=== PATIENT | female | born 1940 | race Caucasian/White ===

== ENCOUNTER 2017-01-26 10:02 | Inpatient (IN) | payer MEDICARE, OTHER ==
[~2017-01-26] VITALS: Ht 160 cm; Wt 62.3 kg
[~2017-01-26 10:02] MED LIST: AMIT50TA PO; AMOX1TAB61 PO; ASPI325T8 PO; BUDE10.2 IH; CARV25TA2 PO; CEPH-264 PO; CLOP75TA PO; DIAZ5TAB4 PO; HYDR-2678 PO; HYDROCODONE; PARO10TA57 PO; SIMV20TA3 PO; TIOT18CA IH; VENTOLIN HFA18 GM IH; VENTOLIN PRN; [UNRECOGNIZED DRUG - OTHER]
[2017-01-26 10:37] LABS: BASO # 0.1 x10^3/uL (0.0-0.2); BASO % 1 % (0-3); EOS % 4 % (0-3); HEMATOCRIT 46.4 % (36.0-47.0); HEMOGLOBIN 15.3 g/dL (12.0-15.5); LYMPH # 1.6 x10^3/uL (1.0-4.8); LYMPH % 23 % (24-48); MEAN CORPUSCULAR HEMOGLOBIN 31 pg (25-35); MEAN CORPUSCULAR HGB CONC 33 g/dL (31-37); MEAN CORPUSCULAR VOLUME 93 fL (79-100); MONO % 8 % (0-9); NEUT % 65 % (31-73); PLATELET COUNT 203 x10^3/uL (140-400); RED BLOOD COUNT 4.98 x10^6/uL (3.50-5.40); RED CELL DISTRIBUTION WIDTH 13.2 % (11.5-14.5); WHITE BLOOD COUNT 7.3 x10^3/uL (4.0-11.0)
[2017-01-26 10:48] LABS: CALCIUM 8.8 mg/dL (8.5-10.1); CREATININE 0.8 mg/dL (0.6-1.0); GFR 70.1
[2017-01-26 10:54] LABS: ALBUMIN 3.9 g/dL (3.4-5.0); DIRECT BILIRUBIN 0.1 mg/dL (0.0-0.2); MAGNESIUM 2.1 mg/dL (1.8-2.4); TOTAL BILIRUBIN 0.3 mg/dL (0.2-1.0)
[2017-01-26 11:02] LABS: CKMB MASS 0.6 ng/mL (0.0-3.6); CREATINE KINASE 17 U/L (26-192)
--- NOTE | 2017-01-26 11:03 | RAD ---
AP portable chest radiograph 01/26/2017 Clinical History: Syncopal episode and heart palpitations. An AP portable erect digital radiograph of the chest was obtained. Comparison study is dated 09/14/2014. A pacemaker/defibrillator is unchanged in position. The cardiac silhouette is normal in size. Atherosclerotic calcification of the thoracic aorta is seen. The thoracic aorta is mildly tortuous. No acute pulmonary infiltrate is noted. No pneumothorax or pleural effusion is seen. Degenerative changes are seen involving the thoracic spine and both shoulders. Impression: No acute abnormality is seen.
--- NOTE | 2017-01-26 11:53 | PHYS DOC ---
Past Medical History Past Medical History: Anxiety, COPD, Depression, High Cholesterol, Heart Disease, Hip Fracture, [place] Past Surgical History: Appendectomy, Hip Replacement, Hysterectomy, Pacemaker Additional Past Surgical Histo: defib placement Alcohol Use: Rarely Drug Use: None Adult General Chief Complaint Chief Complaint: CHEST PAIN HPI HPI Patient is a 76 year old female brought to the ED by a family with the complaint of chest/heart symptoms. Patient states "my heart fluttered so hard". She was not doing anything in particular and it felt like her heart was going really fast. She got real weak when this happened. It lasted maybe 30-60 seconds. She did not have actual pain in her chest but had a very disturbing fluttering feeling. She's never had this before that lasted half a minute or minute. She's had it very briefly in the past. Patient does have a pacemaker/ defibrillator and she was not shocked. She's never been shocked. Patient states she was recently treated with antibiotics for a cough, she is about at the end of her antibiotics. She doesn't remember what they are and did not bring them with her. She still has "phlegm in her throat". She has a history of COPD. I asked if she smokes, she states "once in a blue may", but when I ask her when she smoked last she stated yesterday. PCP Dr. Patel in [place] [facility]. Mcgee Review of Systems Review of Systems Constitutional: Denies fever or chills [] HENT: She has had phlegm in her throat and needing to clear her throat Respiratory: As in history of present illness Cardiovascular: As in history of present illness GI: Denies abdominal pain, nausea, vomiting, bloody stools or diarrhea [] : Denies dysuria or hematuria [] Musculoskeletal: Denies back pain or joint pain [] Integument: Denies rash or skin lesions [] Neurologic: Denies headache, focal weakness or sensory changes [] Allergies Allergies Allergies Coded Allergies Type Severity Reaction Last Updated Verified Iodinated Contrast- Oral and IV Dye Allergy Severe Anaphylaxis 01/26/17 No azithromycin Allergy Intermediate Either Zithromax OR Levaquin per Dr. Donahue 01/26/17 Yes latex Allergy Intermediate 01/26/17 Yes levofloxacin Allergy Intermediate Either Zithromax OR Levaquin per Dr. Donahue 01/26/17 Yes amoxicillin Adverse Reaction Intermediate vomit 01/26/17 No Physical Exam Physical Exam Constitutional: Well developed, well nourished, no acute distress, non-toxic appearance. Alert, mentating normally. Warm and dry. HENT: Normocephalic, atraumatic, bilateral external ears normal, nose normal. [ ] Eyes: conjunctiva normal, no discharge. [] Neck: Normal range of motion, no stridor. [] Cardiovascular:Heart rate regular rhythm, no murmur Chest wall: Pacemaker/defibrillator is palpable over the left upper chest wall, nontender, unremarkable. Lungs & Thorax: Bilateral breath sounds clear to auscultation [] Skin: Warm, dry, no erythema, no rash. [] Extremities: No tenderness, no cyanosis, no clubbing, ROM intact, no edema. [] Neurologic: Alert and oriented X 3, normal motor function, normal sensory function, no focal deficits noted. [] Current Patient Data Vital Signs Vital Signs Date Time Temp Pulse Resp B/P (MAP) Pulse Ox O2 Delivery O2 Flow Rate FiO2 01/26/17 12:00 80 18 120/56 (77) 93 Room Air 01/26/17 10:05 98.3 98.3 Lab Values Laboratory Tests Test 01/26/17 10:11 White Blood Count 7.3 x10^3/uL (4.0-11.0) Red Blood Count 4.98 x10^6/uL (3.50-5.40) Hemoglobin 15.3 g/dL (12.0-15.5) Hematocrit 46.4 % (36.0-47.0) Mean Corpuscular Volume 93 fL (79-100) Mean Corpuscular Hemoglobin 31 pg (25-35) Mean Corpuscular Hemoglobin Concent 33 g/dL (31-37) Red Cell Distribution Width 13.2 % (11.5-14.5) Platelet Count 203 x10^3/uL (140-400) Neutrophils (%) (Auto) 65 % (31-73) Lymphocytes (%) (Auto) 23 % (24-48) L Monocytes (%) (Auto) 8 % (0-9) Eosinophils (%) (Auto) 4 % (0-3) H Basophils (%) (Auto) 1 % (0-3) Neutrophils # (Auto) 4.7 x10^3uL (1.8-7.7) Lymphocytes # (Auto) 1.6 x10^3/uL (1.0-4.8) Monocytes # (Auto) 0.6 x10^3/uL (0.0-1.1) Eosinophils # (Auto) 0.3 x10^3/uL (0.0-0.7) Basophils # (Auto) 0.1 x10^3/uL (0.0-0.2) Sodium Level 143 mmol/L (136-145) Potassium Level 4.0 mmol/L (3.5-5.1) Chloride Level 104 mmol/L (98-107) Carbon Dioxide Level 32 mmol/L (21-32) Anion Gap 7 (6-14) Blood Urea Nitrogen 7 mg/dL (7-20) Creatinine 0.8 mg/dL (0.6-1.0) Estimated GFR (Cockcroft-Gault) 70.1 Glucose Level 112 mg/dL (70-99) H Calcium Level 8.8 mg/dL (8.5-10.1) Magnesium Level 2.1 mg/dL (1.8-2.4) Total Bilirubin 0.3 mg/dL (0.2-1.0) Direct Bilirubin 0.1 mg/dL (0.0-0.2) Aspartate Amino Transferase (AST) 19 U/L (15-37) Alanine Aminotransferase (ALT) 20 U/L (14-59) Alkaline Phosphatase 57 U/L (46-116) Creatine Kinase 17 U/L (26-192) L Creatine Kinase MB (Mass) 0.6 ng/mL (0.0-3.6) Creatine Kinase MB Relative Index % (0-4) Troponin I Quantitative < 0.017 ng/mL (0.000-0.055) MO-Deu-I-Type Natriuretic Peptide 434 pg/mL (0-124) H Total Protein 7.0 g/dL (6.4-8.2) Albumin 3.9 g/dL (3.4-5.0) Lipase 56 U/L (73-393) L Laboratory Tests 01/26/17 10:11 Laboratory Tests 01/26/17 10:11 EKG EKG 12-lead EKG read by me. Sinus rhythm. Heart rate 100. STEMI. No cardiac rhythm disturbance. There is nonspecific T-wave inversion in V4 through V6. No ST elevation or depression. 1007 [] Radiology/Procedures Radiology/Procedures [] One view portable chest x-ray read by the radiologist. No acute finding. Course & Med Decision Making Course & Med Decision Making Pertinent Labs and Imaging studies reviewed. (See chart for details) 76-year-old female who has a pacemaker/defibrillator presents with an episode of chest symptoms characterized as "heart fluttering so hard", accompanied by weakness. I would like to have her device interrogated to see if the episode can be identified. Due to accompanying symptoms, I believe she should be hospitalized to be evaluated for cardiac cause of symptoms. I discussed the case with Dr. Maurer, hospitalist. She will admit the patient. I wrote bridge orders. [] Dragon Disclaimer Dragon Disclaimer This electronic medical record was generated, in whole or in part, using a voice recognition dictation system. Departure Departure Impression: Primary Impression: Chest pain Additional Impression: Fluttering sensation of heart Disposition: 09 ADMITTED INPATIENT Admitting Physician: Steph Maurer Condition: STABLE Referrals: JADON PATEL (PCP) Problem Qualifiers AARON MEDINA MD Jan 26, 2017 11:53
[2017-01-26] MEDS ORDERED: PROAIR HFA8.5 GM INH (13:10)
[2017-01-26] MEDS ORDERED: CARV6.252 PO (13:17)
[2017-01-26] MEDS ORDERED: ASPI-482 PO (13:17)
[2017-01-26] MEDS ORDERED: SIME125C75 PO (13:23)
[2017-01-26] MEDS ORDERED: IPRA3AMP NEB (13:23)
[2017-01-26 13:25] VITALS: BP 117/77
[2017-01-26] MEDS ORDERED: DIAZ5TAB PO (14:08)
[2017-01-26] MEDS ORDERED: OXYC-323 PO (14:08)
--- NOTE | 2017-01-26 14:57 | EKG ---
[facility] [address] [place] [address] Test Date: 2017-01-26 Test Time: 10:07:11 Pat Name: MARIE LIU Department: Room: Gender: F Behavioral Services Tech: : [id number] Requested By: AARON MEDINA Order Number: [id number] Reading MD: Measurements Intervals [place] Rate: 100 P: 90 [place]: 92 QRS: 6 QRSD: 80 T: 109 QT: 308 QTc: 400 Interpretive Statements SINUS RHYTHM LOW LIMB LEAD VOLTAGE T ABNORMALITY IN ANTEROLATERAL LEADS RI6.01 Unconfirmed report No previous ECG available for comparison
[2017-01-26 15:00] VITALS: BP 154/73
[2017-01-26] MEDS ORDERED: KETOROLAC 15 MG/ML VIAL. IV PRN (16:00)
[2017-01-26] MEDS ORDERED: PROCHLORPERAZINE 25 MG SUPP.RECT. PR PRN (16:00)
[2017-01-26] MEDS ORDERED: guaiFENesin/CODEINE 100mg/10mg 5 ML LIQUID PO PRN (16:00)
[2017-01-26] MEDS ORDERED: oxyCODONE IR 5 MG TABLET PO PRN (16:00)
[2017-01-26] MEDS ORDERED: MORPHINE SULFATE 4 MG/ML DISP.SYRIN. IV PRN (16:00)
[2017-01-26] MEDS ORDERED: MAGNESIUM HYDROXIDE 2,400 MG/30 ML ORAL.SUSP. PO PRN (16:00)
[2017-01-26] MEDS ORDERED: BISACODYL 10 MG SUPP.RECT. PR PRN (16:00)
[2017-01-26] MEDS ORDERED: ACETAMINOPHEN 325 MG TABLET. PO PRN (16:00)
[2017-01-26] MEDS ORDERED: IBUPROFEN 400 MG TABLET. PO PRN (16:00)
[2017-01-26] MEDS ORDERED: MAG HYDROX/ALUMINUM HYD/SIMETH 30 ML ORAL.SUSP PO PRN (16:00)
[2017-01-26] MEDS ORDERED: NICOTINE 21MG PATCH. TD PRN (16:00)
[2017-01-26] MEDS ORDERED: PROCHLORPERAZINE 10 MG/2 ML VIAL. IV PRN (16:00)
[2017-01-26] MEDS ORDERED: ONDANSETRON PF 4 MG/2 ML VIAL. IV PRN (16:00)
[2017-01-26] MEDS ORDERED: ZOLPIDEM 5 MG TABLET. PO PRN (16:00)
--- NOTE | 2017-01-26 16:04 | PDOC1 ---
History and Physical Date of Admission Date of Admission DATE: 01/26/17 TIME: 15:55 Identification/Chief Complaint Chief Complaint fluttering chest today Problems: Source Source: Caregiver, Chart review, Patient History of Present Illness History of Present Illness very pleasant 76 y.o lady, last here in hospital 2013 and I did see her back then for the ff dx: Following For R foot hematoma - conservative mx dyslipidemia, on meds depression, stable COPD stable CAD on ASA 325 and PLavix at home stable URINARY RETENTION NEEDING JACOBSON (04/24) Today, coloring at home and felt chest fluttering and some chest discomfort, thought she was "going to ", HAs an indwelling pacer and defib placed 5 yrs ago by our group (Dr. Sherwood). She did not felt her defib going off though,. She sees dr Sherwood every 3-6 mos, Her pacer was last checked 4 mos ago, COughing some, hx COPD was on O2 now off x 5 mos, SMokes still but has significantly cut down. LAbs and CXR are normal Hx heart attack with 2 indwelling stents Past Medical History Cardiovascular: CAD, CHF, HTN, OR, Hyperlipidemia Pulmonary: Pneumonia CENTRAL NERVOUS SYSTEM: Migraine, Seizure GI: GERD Heme/Onc: Other Hepatobiliary: No pertinent hx Psych: Anxiety, Panic Musculoskeletal: low back pain, Osteoarthritis, Other Rheumatologic: No pertinent hx Renal/: No pertinent hx Endocrine: Osteoporosis Past Surgical History Past Surgical History: Pacemaker, CABG, Total hip replacement, Hysterectomy, Other Family History Family History: High Cholestrol, Hypertension Social History Smoke: <1 pack per day ALCOHOL: none Drugs: None Current Problem List Problem List Problems Medical Problems: (1) Chest pain Status: Acute (2) Fluttering sensation of heart Status: Acute Problems: Current Medications Current Medications Active Scripts Active Reported Valium (Diazepam) 5 Mg Tablet 5 Mg PO PRN TID PRN Percocet 5-325 Mg Tablet (Oxycodone/Acetaminophen) 1 Each Tablet 1-2 Tab PO Q4- 6HRS Gas Relief (Simethicone) 125 Mg Capsule 125 Mg PO PRN AFTMEALHC PRN Duoneb 0.5-3(2.5) Mg/3 Ml (Albuterol/Ipratropium) 3 Ml Ampul.neb 3 Ml NEB QID Aspir 81 (Aspirin) 81 Mg Tablet. 1 Tab PO DAILY Carvedilol 6.25 Mg Tablet 1 Tab PO DAILY Proair Hfa Inhaler (Albuterol Sulfate) 8.5 Gm Hfa.aer.ad 2 Puff INH PRN Q4HRS PRN Symbicort 160-4.5 Mcg Inhaler (Budesonide/Formoterol Fumarate) 10.2 Gm Hfa.aer.ad 2 Puff IH BID Spiriva (Tiotropium [place]) 18 Mcg Cap.w.dev 1 Cap IH DAILY Simvastatin 20 Mg Tablet 20 Mg PO DAILY Amitriptyline Hcl 50 Mg Tablet 50 Mg PO QHS Allergies Allergies: Coded Allergies: Iodinated Contrast- Oral and IV Dye (Unverified Allergy, Severe, Anaphylaxis, 01/26/17) azithromycin (Verified Allergy, Intermediate, Either Zithromax OR Levaquin per Dr. Donahue, 01/26/17) latex (Verified Allergy, Intermediate, 01/26/17) levofloxacin (Verified Allergy, Intermediate, Either Zithromax OR Levaquin per Dr. Donahue, 01/26/17) amoxicillin (Unverified Adverse Reaction, Intermediate, vomit, 01/26/17) ROS Review of System per HPI, all else is neg Physical Exam General: Alert, Oriented X3, Cooperative, No acute distress, Other (dark glasses on (hard of seeing now)) HEENT: Atraumatic, PERRLA, EOMI Lungs: Clear to auscultation, Normal air movement Heart: S1S2, RRR, no thrills, no rubs, no gallops, no murmurs Cardiovascular: S1, S2 Abdomen: Normal bowel sounds, Soft, No tenderness, No hepatosplenomegaly, No masses Rectal Exam: not examined PELVIC: Nml ext genitalia Extremities: No clubbing, No cyanosis, No edema, Normal pulses, No tenderness/ swelling Skin: No rashes, No breakdown, No significant lesion Neuro: Normal gait, Normal speech, Strength at 5/5 X4 ext, Normal tone, Sensation intact, Cranial nerves 3-12 NL, Reflexes 2+ Psych/Mental Status: Mental status NL, Mood NL Vitals Vitals Vital Signs Date Time Temp Pulse Resp B/P (MAP) Pulse Ox O2 Delivery O2 Flow Rate FiO2 01/26/17 15:00 96.8 93 22 154/73 (100) 93 Room Air 96.8 Labs Labs Laboratory Tests Test 01/26/17 10:11 White Blood Count 7.3 x10^3/uL (4.0-11.0) Red Blood Count 4.98 x10^6/uL (3.50-5.40) Hemoglobin 15.3 g/dL (12.0-15.5) Hematocrit 46.4 % (36.0-47.0) Mean Corpuscular Volume 93 fL (79-100) Mean Corpuscular Hemoglobin 31 pg (25-35) Mean Corpuscular Hemoglobin Concent 33 g/dL (31-37) Red Cell Distribution Width 13.2 % (11.5-14.5) Platelet Count 203 x10^3/uL (140-400) Neutrophils (%) (Auto) 65 % (31-73) Lymphocytes (%) (Auto) 23 % (24-48) Monocytes (%) (Auto) 8 % (0-9) Eosinophils (%) (Auto) 4 % (0-3) Basophils (%) (Auto) 1 % (0-3) Neutrophils # (Auto) 4.7 x10^3uL (1.8-7.7) Lymphocytes # (Auto) 1.6 x10^3/uL (1.0-4.8) Monocytes # (Auto) 0.6 x10^3/uL (0.0-1.1) Eosinophils # (Auto) 0.3 x10^3/uL (0.0-0.7) Basophils # (Auto) 0.1 x10^3/uL (0.0-0.2) Sodium Level 143 mmol/L (136-145) Potassium Level 4.0 mmol/L (3.5-5.1) Chloride Level 104 mmol/L (98-107) Carbon Dioxide Level 32 mmol/L (21-32) Anion Gap 7 (6-14) Blood Urea Nitrogen 7 mg/dL (7-20) Creatinine 0.8 mg/dL (0.6-1.0) Estimated GFR (Cockcroft-Gault) 70.1 Glucose Level 112 mg/dL (70-99) Calcium Level 8.8 mg/dL (8.5-10.1) Magnesium Level 2.1 mg/dL (1.8-2.4) Total Bilirubin 0.3 mg/dL (0.2-1.0) Direct Bilirubin 0.1 mg/dL (0.0-0.2) Aspartate Amino Transf (AST/SGOT) 19 U/L (15-37) Alanine Aminotransferase (ALT/SGPT) 20 U/L (14-59) Alkaline Phosphatase 57 U/L (46-116) Creatine Kinase 17 U/L (26-192) Creatine Kinase MB (Mass) 0.6 ng/mL (0.0-3.6) Creatine Kinase MB Relative Index % (0-4) Troponin I Quantitative < 0.017 ng/mL (0.000-0.055) EQ-Jci-G-Type Natriuretic Peptide 434 pg/mL (0-124) Total Protein 7.0 g/dL (6.4-8.2) Albumin 3.9 g/dL (3.4-5.0) Lipase 56 U/L (73-393) Laboratory Tests Test 01/26/17 10:11 White Blood Count 7.3 x10^3/uL (4.0-11.0) Red Blood Count 4.98 x10^6/uL (3.50-5.40) Hemoglobin 15.3 g/dL (12.0-15.5) Hematocrit 46.4 % (36.0-47.0) Mean Corpuscular Volume 93 fL (79-100) Mean Corpuscular Hemoglobin 31 pg (25-35) Mean Corpuscular Hemoglobin Concent 33 g/dL (31-37) Red Cell Distribution Width 13.2 % (11.5-14.5) Platelet Count 203 x10^3/uL (140-400) Neutrophils (%) (Auto) 65 % (31-73) Lymphocytes (%) (Auto) 23 % (24-48) Monocytes (%) (Auto) 8 % (0-9) Eosinophils (%) (Auto) 4 % (0-3) Basophils (%) (Auto) 1 % (0-3) Neutrophils # (Auto) 4.7 x10^3uL (1.8-7.7) Lymphocytes # (Auto) 1.6 x10^3/uL (1.0-4.8) Monocytes # (Auto) 0.6 x10^3/uL (0.0-1.1) Eosinophils # (Auto) 0.3 x10^3/uL (0.0-0.7) Basophils # (Auto) 0.1 x10^3/uL (0.0-0.2) Sodium Level 143 mmol/L (136-145) Potassium Level 4.0 mmol/L (3.5-5.1) Chloride Level 104 mmol/L (98-107) Carbon Dioxide Level 32 mmol/L (21-32) Anion Gap 7 (6-14) Blood Urea Nitrogen 7 mg/dL (7-20) Creatinine 0.8 mg/dL (0.6-1.0) Estimated GFR (Cockcroft-Gault) 70.1 Glucose Level 112 mg/dL (70-99) Calcium Level 8.8 mg/dL (8.5-10.1) Magnesium Level 2.1 mg/dL (1.8-2.4) Total Bilirubin 0.3 mg/dL (0.2-1.0) Direct Bilirubin 0.1 mg/dL (0.0-0.2) Aspartate Amino Transf (AST/SGOT) 19 U/L (15-37) Alanine Aminotransferase (ALT/SGPT) 20 U/L (14-59) Alkaline Phosphatase 57 U/L (46-116) Creatine Kinase 17 U/L (26-192) Creatine Kinase MB (Mass) 0.6 ng/mL (0.0-3.6) Creatine Kinase MB Relative Index % (0-4) Troponin I Quantitative < 0.017 ng/mL (0.000-0.055) MF-Gju-K-Type Natriuretic Peptide 434 pg/mL (0-124) Total Protein 7.0 g/dL (6.4-8.2) Albumin 3.9 g/dL (3.4-5.0) Lipase 56 U/L (73-393) VTE Prophylaxis Ordered VTE Prophylaxis Devices: Yes VTE Pharmacological Prophylaxi: Yes Assessment/Plan Assessment/Plan 1. CHest fluttering, chest discomfort with indwelling pacer and defib - 2. Smoker, COPD, off home O2 x 5 mos now (as instructed by ) 3. Mild to mod PCM 4 Hx CAD with 2 indwelling stents PLAn: Admit Cards consult NEed pacer checked Pt/OT Resume home meds. CArdiac diet tonight, nPO post MN incase cardiac procedure Nicotine prn Counselled on her smoking COLETTE COLLINS MD Jan 26, 2017 16:04
[2017-01-26] MEDS ORDERED: oxyCODONE/APAP 5/325 1 TAB TABLET PO PRN (16:15)
[2017-01-26] MEDS ORDERED: diazePAM 5 MG TABLET PO PRN (16:15)
[2017-01-26] MEDS ORDERED: SIMETHICONE 80 MG TAB.CHEW PO PRN (16:15)
[2017-01-26] MEDS: IPRATRPIUM/ALBUTEROL 0.5/2.5MG 3 ML NEBU. NEB SCH ×2 (16:46→20:14)
[2017-01-26] MEDS ORDERED: ENOXAPARIN 40 MG/0.4 ML SYRINGE. SQ SCH (18:00)
[2017-01-26 19:25] VITALS: BP 115/60
[2017-01-26] MEDS: BUDESONIDE 0.5 MG/2 ML NEBU. NEB SCH (20:14)
[2017-01-26] MEDS: DOCUSATE SODIUM 100 MG CAPSULE. PO SCH (20:34)
[2017-01-26] MEDS ORDERED: AMITRIPTYLINE HCL 50 MG TABLET PO SCH (21:00)
[2017-01-26] MEDS ORDERED: NON FORMULARY ITEM (Budesonide/Formoterol Fumarate (Symbicort 160-4.5 Mcg Inhaler) 2 PUFF) IH SCH (21:00)
[2017-01-26 23:25] VITALS: BP 99/54
--- NOTE | 2017-01-27 01:16 | ACF ---
Admission Forms Criteria CARDIOLOGY GRG Clinical Indications for Admission to Inpatient Care ( [place]/check or initial the applicable condition/criteria) Hospital admission is needed for appropriate care of the patient because of ANY ONE of the following: [ ] I. Hemodynamic instability as indicated by ALL of the following (1)(2)(3) (4)(5)(6)(7)(8)(9)(10) [ ]a) Vital sign abnormality not readily corrected by appropriate treatment with 12-24 hours for ANY ONE: [ ]i) Hypotension that persists despite appropriate treatment (eg, volume repletion) [ ]ii) Tachycardiathat persists despite appropriate tx ( e.g., analgesia, fluids, sedation as indicated [ ]iii) Orthostatic vital sign changes that persists despite appropriate treatment (eg, volume repletion) [ ]b) Vital sign abnormailty that is severe indicated by ANY ONE of the following: [ ]i) Inadequate perfusion indicated by ANY ONE of the following: [ ] 1) Lactic acidosis (> 2 mmol/L) [ ] 2) New abnormal capillary refill (> 3 seconds) [ ] 3) Reduced urine output [ ] 4) New altered mental status [ ] 5) Myocardial Ischemia [ ] 6) Other metabolic acidosis (arterial pH <7.35 ) not otherwise explained. [ ]ii) Mean arterial pressure[A] less than 60 mm Hg [ ]iii) Mean arterial pressure[A] less than 70 mm Hg after 30 minutes of appropriate treatment (eg, fluid resuscitation) [ ]iv) Sustained heart rate greater than 120 beats per minute in adult or child 6 years or older[B] [ ]v) IV inotropic or vasopressor medication required to maintain adequate blood pressure or perfusion [ ] II. Severe heart failure as indicated by ANY ONE of the following(17)(18) [ ]a) Respiratory distress [ ]b) Hypotension [ ]c) Debilitating anasarca refractory to therapy (eg, tissue breakdown with infection)[C](19) [ ]d) Cardiac arrhythmias of immediate concern [ ]e) Myocardial ischemia [ ] III. Cardiac arrhythmias or findings of immediate concern indicated by ANY ONE of the following (21)(22): [ ] a) Heart rhythms that are inherently dangerous or unstable indicated by ANY ONE of the following (23)(24)(25): [ ] i) Resuscitated ventricular fibrillation or cardiac arrest [ ] ii) Ventricular escape rhythm [ ] iii) Sustained ventricular tachycardia (30 seconds or more of ventricular rhythm at greater than 100 beats per minute) [ ] iv) Nonsustained ventricular tachycardia and ANY ONE of the following: [ ] 1) Suspected cardiac ischemia as cause or consequence of ventricular tachycardia [ ] 2) Acute myocarditis [ ] b) Unstable cardiac conduction defects indicated by ANY ONE of the following(25)(26)(27) [ ] i) Type II second-degree atrioventricular block [ ]ii) Third-degree atrioventricular block [ ]iii) New-onset left bundle branch block with suspected myocardial ischemia [ ]c) Any heart rhythm and ANY ONE of the following (23)(24)(28)(29) (30) [ ] i) Continuous long-term ECG monitoring needed (e.g., initiation of drug requiring monitoring for more than 24 hours) [ ] ii) Patient has automatic implanted cardioverter defibrillator that is repeatedly firing, malfunctioning, or in need of immediate adjustment of settings beyond the scope of ambulatory or observation care [ ]d) Heart rhythms of concern due to ANY ONE of the following: [ ] i) Hypotension [ ] ii) Respiratory distress [ ] iii) Association with other significant symptoms (e.g., bradycardia with syncope or ongoing dizziness, supraventricular tachycardia with chest pain (28)(29)(31) [ ] IV. Monitoring for cardiac contusion beyond the scope of observation care needed [A](32)(33)(34) [ ] V. Surgical or device complication (e.g., valve replacement complication , ICD disfunction or pacemaker dysfunction) (49)(50)(51)(52)(53)(54) [ ] . Inpatient palliative care needed. [F](51)(52) Also use Inpatient Palliative Care Criteria [ ] VII. Nonbacterial thrombotic (marantic) endocarditis(43)(44)(55)(56)(57) [X ] VIII. Cardiology condition, symptom, or finding for which emergency and observation care has failed or are not considered appropriate. [ ] IX. Acute valvular disease requiring inpatient as indicated by ANY ONE of the following (40)(41) [ ]a) Acute valvular regurgitation (42) [ ]b) Noninfectious valvulitis (43)(44) [ ]c) Obstructive valve thrombosis (45)(46) [ ]d) Paravalvular leak(47)(48) [ ]e) Other significant valvular disorder remaining after emergency or observation level of care (as appropriate) [ ]X. Pericardial disease requiring inpatient treatment as indicated by ANY ONE of the following (35)(36)(37)(38) [ ]a) Suspected tamponade [ ]b) Hemopericardium [ ]c) Other significant pericardial disorder remaining after emergency or observation level of care (as appropriate)(39) [ ] XI. Cardiac ischemia beyond scope of emergency and observation care. [ ] XII. Cyanotic heart disease requiring inpatient care as indicated by 1 or more of the following(58)(59)(60): [ ]a) Acute onset of hypoxemia [ ]b) Exacerbation [ ] XIII. Hypertension requiring inpatient treatment as indicated by ANYONE of the following(11)(12)(13)(14): [ ]a) Severe hypertension (SBP greater than 180 mm Hg or DBP greater than 110 mm Hg, or greater than the 95th percentile for age, gender, and height in pediatric patients) that cannot be controlled (eg, to SBP less than 160 mm Hg and DBP less than 100 mm Hg) by emergency department or observation care treatment(15) [ ]b) Acute end organ damage secondary to hypertension (SBP greater than 140 mm Hg or DBP greater than 90 mm Hg) as indicated by ANYONE of the following: [ ] i) Hypertensive encephalopathy (eg, Altered mental status)(16) [ ] ii) Cerebral infarction [ ] iii) Intracranial hemorrhage [ ] iv) Myocardial ischemia or infarction [ ] v) Heart failure (eg, pulmonary edema) [ ] vi) Aortic dissection [ ] vii) Increased creatinine (new) with reduction of more than 50% in estimated glomerular filtration rate from baseline [ ] viii) Papilledema [ ] ix) Retinal hemorrhage [ ] x) Microangiopathic hemolytic anemia [ ] xi) Seizure [ ] xii) Other significant finding secondary to hypertension [ ] XIV. Complications of transplanted heart indicated by ANY ONE of the following(61): [ ]a) Acute graft rejection requiring inpatient management (eg, intravenous imunosuppression)(62)(63) [ ]b) Acute graft heart failure indicated by ANY ONE of the following(64): [ ] i) Hemodynamic instability [ ] ii) Cardiac arrhythmias of immediate concern [ ] iii) Pulmonary edema that is very severe (eg, mechanical ventilation needed, imminent or likely, need for 100% oxygen to keep oxygen saturation above 90%) [ ] iv) Pulmonary edema that is persistent as indicated by ALL of the following: [ ] 1) New need for oxygen therapy to keep oxygen saturation above 90 % (or increased FiO2 need from baseline) [ ] 2) Has not improved sufficiently with emergency department or observation care IV diuretics or other heart failure treatments[E]. [ ] iv) Altered mental status that is severe or persistent [ ] iv) Increased creatinine (new on laboratory test) with reduction of more than 50% in estimated glomerular filtration rate from baseline [ ] iv) Progressively (ongoing) rising creatinine (known from past laboratory test) with reduction of more than 25% in estimated glomerular filtration rate from baseline [ ] iv) Acute renal failure [ ] iv) Acute peripheral ischemia (eg, examination shows pulseless, cool, mottled, or cyanotic extremity) [ ] iv) Pulmonary artery catheter monitoring needed [ ] iv) Other sign or symptom of heart failure requiring inpatient treatment (ie, too severe or not responsive to outpatient and observation care treatment) [ ]c) Infection requiring inpatient management (eg, Hemodynamic instability, need for intravenous antimicrobial treatment)(66)(67)(68)(69)(70) [ ]d) Cardiac allograft vasculopathy requiring inpatient management (eg evidence of cardiacischemia)(71) [ ]e) Other complication of transplanted heart (eg, stroke, severe pulmonary hypertension, severe valvular dysfunction) requiring inpatient management(72) The original [employer] [facility] [employer] content created by [employer] [facility] [employer] has been revised. The portions of the content which have been revised are identified through the use of italic text, and [facility] has neither reviewed nor approved the modified material. All other unmodified content is copyright [facility] [employer]. Please see references footnoted in the original [employer] [facility] [employer] edition 2014 Admission Criteria Met?: Yes PATRICIA FISHER Jan 27, 2017 01:16
[2017-01-27 03:25] VITALS: BP 120/69
[2017-01-27] MEDS: BUDESONIDE 0.5 MG/2 ML NEBU. NEB SCH (07:09)
[2017-01-27] MEDS: IPRATRPIUM/ALBUTEROL 0.5/2.5MG 3 ML NEBU. NEB SCH ×3 (07:09→16:15)
[2017-01-27 07:14] VITALS: BP 146/68
--- NOTE | 2017-01-27 08:34 | PDOC ---
PROGRESS NOTES Chief Complaint Chief Complaint 1. CHest fluttering, chest discomfort with indwelling pacer and defib - 2. Smoker, COPD, off home O2 x 5 mos now (as instructed by ) 3. 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 Mcgee PLAN: Await cards rounds HAs been NPO since [place] in case cardiac testing Vitals Vitals Vital Signs Date Time Temp Pulse Resp B/P (MAP) Pulse Ox O2 Delivery O2 Flow Rate FiO2 01/27/17 07:14 98.2 89 19 146/68 (94) 94 Room Air 98.2 Physical Exam General: Alert, Oriented X3, Cooperative, No acute distress, Other (dark glasses on (hard of seeing now)) Heart: Regular rate Lungs: Clear, Other Abdomen: Normal bowel sounds, Soft, No tenderness, No hepatosplenomegaly, No masses Extremities: No clubbing, No cyanosis, No edema, Normal pulses, No tenderness/ swelling Skin: No rashes, No breakdown, No significant lesion Labs LABS Laboratory Tests Test 01/26/17 10:11 White Blood Count 7.3 x10^3/uL (4.0-11.0) Red Blood Count 4.98 x10^6/uL (3.50-5.40) Hemoglobin 15.3 g/dL (12.0-15.5) Hematocrit 46.4 % (36.0-47.0) Mean Corpuscular Volume 93 fL (79-100) Mean Corpuscular Hemoglobin 31 pg (25-35) Mean Corpuscular Hemoglobin Concent 33 g/dL (31-37) Red Cell Distribution Width 13.2 % (11.5-14.5) Platelet Count 203 x10^3/uL (140-400) Neutrophils (%) (Auto) 65 % (31-73) Lymphocytes (%) (Auto) 23 % (24-48) Monocytes (%) (Auto) 8 % (0-9) Eosinophils (%) (Auto) 4 % (0-3) Basophils (%) (Auto) 1 % (0-3) Neutrophils # (Auto) 4.7 x10^3uL (1.8-7.7) Lymphocytes # (Auto) 1.6 x10^3/uL (1.0-4.8) Monocytes # (Auto) 0.6 x10^3/uL (0.0-1.1) Eosinophils # (Auto) 0.3 x10^3/uL (0.0-0.7) Basophils # (Auto) 0.1 x10^3/uL (0.0-0.2) Sodium Level 143 mmol/L (136-145) Potassium Level 4.0 mmol/L (3.5-5.1) Chloride Level 104 mmol/L (98-107) Carbon Dioxide Level 32 mmol/L (21-32) Anion Gap 7 (6-14) Blood Urea Nitrogen 7 mg/dL (7-20) Creatinine 0.8 mg/dL (0.6-1.0) Estimated GFR (Cockcroft-Gault) 70.1 Glucose Level 112 mg/dL (70-99) Calcium Level 8.8 mg/dL (8.5-10.1) Magnesium Level 2.1 mg/dL (1.8-2.4) Total Bilirubin 0.3 mg/dL (0.2-1.0) Direct Bilirubin 0.1 mg/dL (0.0-0.2) Aspartate Amino Transf (AST/SGOT) 19 U/L (15-37) Alanine Aminotransferase (ALT/SGPT) 20 U/L (14-59) Alkaline Phosphatase 57 U/L (46-116) Creatine Kinase 17 U/L (26-192) Creatine Kinase MB (Mass) 0.6 ng/mL (0.0-3.6) Creatine Kinase MB Relative Index % (0-4) Troponin I Quantitative < 0.017 ng/mL (0.000-0.055) SO-Edw-D-Type Natriuretic Peptide 434 pg/mL (0-124) Total Protein 7.0 g/dL (6.4-8.2) Albumin 3.9 g/dL (3.4-5.0) Lipase 56 U/L (73-393) Review of Systems Review of Systems neg 14 pt reviewed Assessment and Plan Assessmemt and Plan Problems Medical Problems: (1) Chest pain Status: Acute (2) Fluttering sensation of heart Status: Acute Problems: Comment Review of Relevant I have reviewed the following items luda (where applicable) has been applied. Labs Laboratory Tests Test 01/26/17 10:11 White Blood Count 7.3 x10^3/uL (4.0-11.0) Red Blood Count 4.98 x10^6/uL (3.50-5.40) Hemoglobin 15.3 g/dL (12.0-15.5) Hematocrit 46.4 % (36.0-47.0) Mean Corpuscular Volume 93 fL (79-100) Mean Corpuscular Hemoglobin 31 pg (25-35) Mean Corpuscular Hemoglobin Concent 33 g/dL (31-37) Red Cell Distribution Width 13.2 % (11.5-14.5) Platelet Count 203 x10^3/uL (140-400) Neutrophils (%) (Auto) 65 % (31-73) Lymphocytes (%) (Auto) 23 % (24-48) Monocytes (%) (Auto) 8 % (0-9) Eosinophils (%) (Auto) 4 % (0-3) Basophils (%) (Auto) 1 % (0-3) Neutrophils # (Auto) 4.7 x10^3uL (1.8-7.7) Lymphocytes # (Auto) 1.6 x10^3/uL (1.0-4.8) Monocytes # (Auto) 0.6 x10^3/uL (0.0-1.1) Eosinophils # (Auto) 0.3 x10^3/uL (0.0-0.7) Basophils # (Auto) 0.1 x10^3/uL (0.0-0.2) Sodium Level 143 mmol/L (136-145) Potassium Level 4.0 mmol/L (3.5-5.1) Chloride Level 104 mmol/L (98-107) Carbon Dioxide Level 32 mmol/L (21-32) Anion Gap 7 (6-14) Blood Urea Nitrogen 7 mg/dL (7-20) Creatinine 0.8 mg/dL (0.6-1.0) Estimated GFR (Cockcroft-Gault) 70.1 Glucose Level 112 mg/dL (70-99) Calcium Level 8.8 mg/dL (8.5-10.1) Magnesium Level 2.1 mg/dL (1.8-2.4) Total Bilirubin 0.3 mg/dL (0.2-1.0) Direct Bilirubin 0.1 mg/dL (0.0-0.2) Aspartate Amino Transf (AST/SGOT) 19 U/L (15-37) Alanine Aminotransferase (ALT/SGPT) 20 U/L (14-59) Alkaline Phosphatase 57 U/L (46-116) Creatine Kinase 17 U/L (26-192) Creatine Kinase MB (Mass) 0.6 ng/mL (0.0-3.6) Creatine Kinase MB Relative Index % (0-4) Troponin I Quantitative < 0.017 ng/mL (0.000-0.055) LX-Tjn-E-Type Natriuretic Peptide 434 pg/mL (0-124) Total Protein 7.0 g/dL (6.4-8.2) Albumin 3.9 g/dL (3.4-5.0) Lipase 56 U/L (73-393) Laboratory Tests Test 01/26/17 10:11 White Blood Count 7.3 x10^3/uL (4.0-11.0) Red Blood Count 4.98 x10^6/uL (3.50-5.40) Hemoglobin 15.3 g/dL (12.0-15.5) Hematocrit 46.4 % (36.0-47.0) Mean Corpuscular Volume 93 fL (79-100) Mean Corpuscular Hemoglobin 31 pg (25-35) Mean Corpuscular Hemoglobin Concent 33 g/dL (31-37) Red Cell Distribution Width 13.2 % (11.5-14.5) Platelet Count 203 x10^3/uL (140-400) Neutrophils (%) (Auto) 65 % (31-73) Lymphocytes (%) (Auto) 23 % (24-48) Monocytes (%) (Auto) 8 % (0-9) Eosinophils (%) (Auto) 4 % (0-3) Basophils (%) (Auto) 1 % (0-3) Neutrophils # (Auto) 4.7 x10^3uL (1.8-7.7) Lymphocytes # (Auto) 1.6 x10^3/uL (1.0-4.8) Monocytes # (Auto) 0.6 x10^3/uL (0.0-1.1) Eosinophils # (Auto) 0.3 x10^3/uL (0.0-0.7) Basophils # (Auto) 0.1 x10^3/uL (0.0-0.2) Sodium Level 143 mmol/L (136-145) Potassium Level 4.0 mmol/L (3.5-5.1) Chloride Level 104 mmol/L (98-107) Carbon Dioxide Level 32 mmol/L (21-32) Anion Gap 7 (6-14) Blood Urea Nitrogen 7 mg/dL (7-20) Creatinine 0.8 mg/dL (0.6-1.0) Estimated GFR (Cockcroft-Gault) 70.1 Glucose Level 112 mg/dL (70-99) Calcium Level 8.8 mg/dL (8.5-10.1) Magnesium Level 2.1 mg/dL (1.8-2.4) Total Bilirubin 0.3 mg/dL (0.2-1.0) Direct Bilirubin 0.1 mg/dL (0.0-0.2) Aspartate Amino Transf (AST/SGOT) 19 U/L (15-37) Alanine Aminotransferase (ALT/SGPT) 20 U/L (14-59) Alkaline Phosphatase 57 U/L (46-116) Creatine Kinase 17 U/L (26-192) Creatine Kinase MB (Mass) 0.6 ng/mL (0.0-3.6) Creatine Kinase MB Relative Index % (0-4) Troponin I Quantitative < 0.017 ng/mL (0.000-0.055) XJ-Plb-I-Type Natriuretic Peptide 434 pg/mL (0-124) Total Protein 7.0 g/dL (6.4-8.2) Albumin 3.9 g/dL (3.4-5.0) Lipase 56 U/L (73-393) Medications Current Medications Ondansetron HCl (Zofran) 4 mg PRN Q6HRS PRN IV NAUSEA/VOMITING; Start 01/26/17 at 16:00 Prochlorperazine Edisylate (Compazine) 10 mg PRN Q6HRS PRN IV NAUSEA/VOMITING; Start 01/26/17 at 16:00 Prochlorperazine (Compazine) 25 mg PRN Q12HR PRN LA NAUSEA/VOMITING; Start at 16:00 Al Hydroxide/Mg Hydroxide (Mylanta Plus Xs) 30 ml PRN Q3HRS PRN PO HEARTBURN / GAS; Start 01/26/17 at 16:00 Zolpidem Tartrate (Ambien) 2.5 mg PRN QHS PRN PO INSOMNIA, MAY REPEAT IN 1HR; Start 01/26/17 at 16:00 Oxycodone HCl (Roxicodone) 5 mg PRN Q3HRS PRN PO BREAKTHROUGH PAIN; Start 01/26 at 16:00 Morphine Sulfate 1 mg PRN Q1HR PRN IV PAIN; Start 01/26/17 at 16:00 Ketorolac Tromethamine (Toradol) 15 mg PRN Q6HRS PRN IV PAIN; Start 01/26/17 at 16:00; Stop 01/31/17 at 15:59 Acetaminophen (Tylenol) 650 mg PRN Q6HRS PRN PO Headaches, Temp > 101.5F; Start 01/26/17 at 16:00 Ibuprofen (Motrin) 400 mg PRN Q6HRS PRN PO MILD PAIN; Start 01/26/17 at 16:00 Docusate Sodium (Colace) 100 mg BID PO Last administered on 01/26/17 20:34; Start 01/26/17 at 21:00 Magnesium Hydroxide (Milk Of Magnesia) 2,400 mg PRN Q12HR PRN PO CONSTIPATION; Start 01/26/17 at 16:00 Bisacodyl (Dulcolax Supp) 10 mg PRN DAILY PRN LA CONSTIPATION; Start 01/26/17 at 16:00 Enoxaparin Sodium (Lovenox 40mg Syringe) 40 mg Q24H SQ Last administered on 18:21; Start 01/26/17 at 18:00 Albuterol/ Ipratropium (Duoneb) 3 ml RTQID NEB Last administered on 01/27/17 07:09; Start 01/26/17 at 16:00 Nicotine (Nicoderm Cq 21mg) 1 patch PRN DAILY PRN TD SMOKING CESSATION; Start 01/26/17 at 16:00 Guaifenesin/ Codeine Phosphate (Robitussin Ac) 5 ml PRN Q6HRS PRN PO COUGH; Start 01/26/17 at 16:00 Amitriptyline HCl (Amitriptyline HCl) 50 mg QHS PO Last administered on 20:34; Start 01/26/17 at 21:00 Aspirin (Ecotrin) 81 mg DAILY PO ; Start 01/27/17 at 09:00 Carvedilol (Coreg) 6.25 mg DAILY PO ; Start 01/27/17 at 09:00 Diazepam (Valium) 5 mg PRN TID PRN PO ANXIETY / AGITATION Last administered on 01/26/17 20:34; Start 01/26/17 at 16:15 Oxycodone/ Acetaminophen (Percocet 5/325) 1 tab PRN QID PRN PO pain; Start at 16:15 Simvastatin (Zocor) 20 mg DAILY PO ; Start 01/27/17 at 09:00 Non-Formulary Medication 2 puff BID IH ; Start 01/26/17 at 21:00; Status UNV Simethicone (Gas-X) 80 mg PRN AFTMEALHC PRN PO GAS / BLOATING; Start 01/26/17 at 16:15 Non-Formulary Medication 1 cap DAILY IH ; Start 01/27/17 at 09:00; Status UNV Budesonide (Pulmicort) 0.5 mg RTBID NEB Last administered on 01/27/17 07:09; Start 01/26/17 at 20:00 Active Scripts Active Reported Valium (Diazepam) 5 Mg Tablet 5 Mg PO PRN TID PRN Percocet 5-325 Mg Tablet (Oxycodone/Acetaminophen) 1 Each Tablet 1-2 Tab PO Q4- 6HRS Gas Relief (Simethicone) 125 Mg Capsule 125 Mg PO PRN AFTMEALHC PRN Duoneb 0.5-3(2.5) Mg/3 Ml (Albuterol/Ipratropium) 3 Ml Ampul.neb 3 Ml NEB QID Aspir 81 (Aspirin) 81 Mg Tablet.dr 1 Tab PO DAILY Carvedilol 6.25 Mg Tablet 1 Tab PO DAILY Proair Hfa Inhaler (Albuterol Sulfate) 8.5 Gm Hfa.aer.ad 2 Puff INH PRN Q4HRS PRN Symbicort 160-4.5 Mcg Inhaler (Budesonide/Formoterol Fumarate) 10.2 Gm Hfa.aer.ad 2 Puff IH BID Spiriva (Tiotropium [place]) 18 Mcg Cap.w.dev 1 Cap IH DAILY Simvastatin 20 Mg Tablet 20 Mg PO DAILY Amitriptyline Hcl 50 Mg Tablet 50 Mg PO QHS Vitals/I & O Vital Sign - Last 24 Hours 01/26/17 01/26/17 01/26/17 01/26/17 10:05 10:30 11:00 11:30 Temp 98.3 98.3 Pulse 99 90 82 80 Resp 20 16 16 18 B/P (MAP) 156/77 (103) 140/90 (107) 113/68 (83) 119/69 (86) Pulse Ox 94 93 94 94 O2 Delivery Room Air Room Air Room Air Room Air 01/26/17 01/26/17 01/26/17 01/26/17 12:00 13:25 15:00 16:19 Temp 95.9 96.8 95.9 96.8 Pulse 80 77 93 Resp 18 20 22 B/P (MAP) 120/56 (77) 117/77 (90) 154/73 (100) Pulse Ox 93 95 93 O2 Delivery Room Air Room Air Room Air Room Air 01/26/17 01/26/17 01/26/17 01/26/17 16:51 19:25 20:00 20:15 Temp 97.6 97.6 Pulse 93 Resp 24 B/P (MAP) 115/60 (78) Pulse Ox 94 92 94 O2 Delivery Room Air Room Air Room Air Room Air 01/26/17 01/26/17 01/27/17 01/27/17 20:15 23:25 03:25 07:09 Temp 97.8 98.0 97.8 98.0 Pulse 92 90 Resp 20 20 B/P (MAP) 99/54 (69) 120/69 (86) Pulse Ox 94 92 92 91 O2 Delivery Room Air Room Air Room Air Room Air 01/27/17 07:14 Temp 98.2 98.2 Pulse 89 Resp 19 B/P (MAP) 146/68 (94) Pulse Ox 94 O2 Delivery Room Air Intake and Output 01/26/17 01/26/17 01/27/17 15:00 23:00 07:00 Intake Total 140 ml 350 ml Balance 140 ml 350 ml COLETTE COLLINS MD Jan 27, 2017 08:34
[2017-01-27] MEDS ORDERED: NON FORMULARY ITEM (Tiotropium Bromide (Spiriva) 1 CAP) IH SCH (09:00)
[2017-01-27] MEDS ORDERED: SIMVASTATIN 20 MG TABLET PO SCH (09:00)
[2017-01-27] MEDS ORDERED: ASPIRIN ENTERIC COATED 81 MG TABLET.DR. PO SCH (09:00)
[2017-01-27] MEDS ORDERED: CARVEDILOL 6.25 MG TABLET. PO SCH (09:00)
[2017-01-27 10:52] VITALS: BP 128/69
[2017-01-27] MEDS: DOCUSATE SODIUM 100 MG CAPSULE. PO SCH (11:59)
--- NOTE | 2017-01-27 13:12 | PDOC2 ---
CARDIOLOGY CONSULT NOTE CHEIF COMPLAINT: Late entry for 01/26/2017 Patient seen on 01/26/2017. Palpitations Problems: HPI: 76-year-old well-known to our office presented to the hospital the setting of palpitations. She's had remote history of intermittent palpitations which have not significantly limited her lifestyle but yesterday she noted significant palpitations which caused some discomfort in her chest which prompted her to seek medical attention. Upon arrival to the emergency department she did not have any significant chest pain as her palpitations had resolved. The palpitations lasted several minutes. She denies any syncope, orthopnea, PND or lower extremity edema. She was recently seen in the office and was doing quite well. PMHX: Coronary artery disease status post PCI of the LAD Ischemic heart myopathy Hypertension Dyslipidemia SOCHX: Negative for alcohol, tobacco or illicit drug use. FAMHX: Noncontributory CURRENT MEDS: Current Medications Medications (Trade) Dose Ordered Sig/Humaira Start Time Stop Time Status Last Admin Dose Admin Acetaminophen (Tylenol) 650 mg PRN Q6HRS PRN 01/26/17 16:00 Al Hydroxide/Mg Hydroxide (Mylanta Plus Xs) 30 ml PRN Q3HRS PRN 01/26/17 16:00 Albuterol/ Ipratropium (Duoneb) 3 ml RTQID 01/26/17 16:00 01/27/17 10:50 3 ML Amitriptyline HCl (Amitriptyline HCl) 50 mg QHS 01/26/17 21:00 01/26/17 20:34 50 MG Aspirin (Ecotrin) 81 mg DAILY 01/27/17 09:00 01/27/17 11:59 81 MG Bisacodyl (Dulcolax Supp) 10 mg PRN DAILY PRN 01/26/17 16:00 Budesonide (Pulmicort) 0.5 mg RTBID 01/26/17 20:00 01/27/17 07:09 0.5 MG Carvedilol (Coreg) 6.25 mg DAILY 01/27/17 09:00 01/27/17 11:59 6.25 MG Diazepam (Valium) 5 mg PRN TID PRN 01/26/17 16:15 01/26/17 20:34 5 MG Docusate Sodium (Colace) 100 mg BID 01/26/17 21:00 01/27/17 11:59 100 MG Enoxaparin Sodium (Lovenox 40mg Syringe) 40 mg Q24H 01/26/17 18:00 01/26/17 18:21 40 MG Guaifenesin/ Codeine Phosphate (Robitussin Ac) 5 ml PRN Q6HRS PRN 01/26/17 16:00 Ibuprofen (Motrin) 400 mg PRN Q6HRS PRN 01/26/17 16:00 Ketorolac Tromethamine (Toradol) 15 mg PRN Q6HRS PRN 01/26/17 16:00 01/31/17 15:59 Magnesium Hydroxide (Milk Of Magnesia) 2,400 mg PRN Q12HR PRN 01/26/17 16:00 Morphine Sulfate 1 mg PRN Q1HR PRN 01/26/17 16:00 Nicotine (Nicoderm Cq 21mg) 1 patch PRN DAILY PRN 01/26/17 16:00 Non-Formulary Medication 1 cap DAILY 01/27/17 09:00 UNV Ondansetron HCl (Zofran) 4 mg PRN Q6HRS PRN 01/26/17 16:00 Oxycodone HCl (Roxicodone) 5 mg PRN Q3HRS PRN 01/26/17 16:00 Oxycodone/ Acetaminophen (Percocet 5/325) 1 tab PRN QID PRN 01/26/17 16:15 01/27/17 12:06 1 TAB Prochlorperazine (Compazine) 25 mg PRN Q12HR PRN 01/26/17 16:00 Prochlorperazine Edisylate (Compazine) 10 mg PRN Q6HRS PRN 01/26/17 16:00 Simethicone (Gas-X) 80 mg PRN AFTMEALHC PRN 01/26/17 16:15 Simvastatin (Zocor) 20 mg DAILY 01/27/17 09:00 01/27/17 11:59 20 MG Zolpidem Tartrate (Ambien) 2.5 mg PRN QHS PRN 01/26/17 16:00 ALLERGIES: Allergies Coded Allergies Type Severity Reaction Last Updated Verified Iodinated Contrast- Oral and IV Dye Allergy Severe Anaphylaxis 01/26/17 No azithromycin Allergy Intermediate Either Zithromax OR Levaquin per Dr. Donahue 01/26/17 Yes latex Allergy Intermediate 01/26/17 Yes levofloxacin Allergy Intermediate Either Zithromax OR Levaquin per Dr. Donahue 01/26/17 Yes amoxicillin Adverse Reaction Intermediate vomit 01/26/17 No ROS: Negative for 10 out of 14 systems reviewed unless otherwise mentioned above in history of present illness. PHYSICAL EXAM: Vital Signs: Vital Signs Date Time Temp Pulse Resp B/P (MAP) Pulse Ox O2 Delivery O2 Flow Rate FiO2 01/27/17 12:06 93 Room Air 01/27/17 11:59 91 128/69 01/27/17 10:52 98.4 19 98.4 I & O Intake and Output 01/27/17 07:00 Intake Total 490 ml Balance 490 ml Intake Oral 490 ml # Voids 4 Physical Exam: GEN.: No apparent distress. Alert and oriented. HEENT: Head is normocephalic, atraumatic NECK: Supple. LUNGS: Clear to auscultation. HEART: RRR, S1, S2 present. Peripheral pulses intact ABDOMEN: Soft, nontender. Positive bowel sounds. EXTREMITIES: Without any cyanosis. NEUROLOGIC: Normal speech, normal tone PSYCHIATRIC: Normal affect, normal mood. SKIN: No ulcerations DIAGNOSTIC TESTING: Pacemaker/ICD interrogation pending Lab Labs reviewed and no significant amount is noted. ASSESSMENT: 1. Palpitations of unclear etiology. Cannot rule out anxiety component PLAN: 1. Plan for interrogation of her ICD. Continue medical therapy. Based on interrogation can determine further evaluation and treatment. CHANDRAKANT ARANA MD Jan 27, 2017 13:12
--- NOTE | 2017-01-27 13:35 | PDOC ---
CARDIO Progress Notes Date and Time Date of Service 01/27/17 Time of Evaluation 1235 Subjective Subjective: No Chest Pain, No shortness of breath, No Palpitations Vitals Vitals Vital Signs Date Time Temp Pulse Resp B/P (MAP) Pulse Ox O2 Delivery O2 Flow Rate FiO2 01/27/17 12:06 93 Room Air 01/27/17 11:59 91 128/69 01/27/17 10:52 98.4 19 98.4 Weight Weight [ ] Input and Output Intake and Output Intake and Output 01/27/17 07:00 Intake Total 490 ml Balance 490 ml Intake Oral 490 ml # Voids 4 Laboratory Labs Laboratory Tests Test 01/27/17 12:35 Troponin I Quantitative < 0.017 ng/mL (0.000-0.055) Physical Exam HEENT: Neck Supple W Full Motion Chest: Symmetric LUNGS: Clear to Auscultation Heart: S1S2, RRR, no thrills, no rubs, no gallops, no murmurs Abdomen: Soft N/T Extremities: No Edema, No Calf Tenderness Neurology: alert, oriented, follow commands Assessment Assessment 1. Chest pain/palpitations; AMI ruled out. no significant ectopies noted on telemetry 2. CAD s/p PCI/stent placement; continue secondary prevention measures. 3. Chronic systolic HF with ICM; LVEF previously 35-40%. s/p AICD implantation. Well-compensated. Continue optimization therapy. Add low-dose ACEi 4. Hypertension; well-controlled. Recommendations Check echo to assess LV function/presence of WMA Interrogate device to note presence of significant arrhythmias contributing to presenting symptoms. Supportive care. Further recommendations pending diagnostics. Consider outpatient ischemic evaluation as patient refused MPI today. PB WYATT APRN Jan 27, 2017 13:35
[2017-01-27] MEDS ORDERED: LISINOPRIL 5 MG TABLET. PO SCH (14:00)
--- NOTE | 2017-01-27 15:52 | CARD ---
APPROVED REPORT EXAM: Two-dimensional and M-mode echocardiogram with Doppler and color Doppler. Other Information Quality : Good INDICATION Chest Pain 2D DIMENSIONS RVDd1.6 (2.9-3.5cm)Left Atrium(2D)2.6 (1.6-4.0cm) IVSd0.7 (0.7-1.1cm)Aortic Root(2D)2.6 (2.0-3.7cm) LVDd5.0 (3.9-5.9cm)LVOT Diameter2.3 (1.8-2.4cm) PWd0.7 (0.7-1.1cm)LVDs3.9 (2.5-4.0cm) FS (%) 22.2 %SV52.4 ml LVEF(%)44.7 (>50%) Aortic Valve AoV Peak Erik.100.8cm/sAoV VTI16.8cm AO Peak GR.4.1mmHgLVOT Peak Erik.90.0cm/s LVOT VTI 15.57cmAO Mean GR.2mmHg ALLA (VMAX)3.36vz4LNF (VTI)3.97cm2 Mitral Valve MV E Xbhkobfe06.6cm/sMV DECEL COOQ606tt MV A Tgopvkli91.9cm/sMV PVC08qj E/A Ratio0.6MVA (PHT)3.17cm2 TDI E/Lateral E'8.5E/Medial E'9.2 Tricuspid Valve TR P. Iqwbtfrn699kx/sRAP YQEAEIQB8exSs TR Peak Gr.48aiCfUXDW26txSc Pulmonary Vein S1 Foxqqbxz67.1cm/sD2 Fsiwigor74.9cm/s PVa gmgjkoit974ywxy LEFT VENTRICLE The left ventricle is normal size. There is normal left ventricular wall thickness. The Ejection Frac tion is 40%. Abnormal septal motion consistent with pacemaker activation. Transmitral Doppler flow pa ttern is Grade I-abnormal relaxation pattern. RIGHT VENTRICLE The right ventricle is normal size. The right ventricular systolic function is normal. ATRIA The left atrium size is normal. The right atrium size is normal. The interatrial septum is intact wit h no evidence for an atrial septal defect or patent foramen ovale as noted on 2-D or Doppler imaging. AORTIC VALVE The aortic valve is not well visualized. Doppler and Color Flow revealed no significant aortic regurg itation. There is no significant aortic valvular stenosis. MITRAL VALVE The mitral valve is calcified but opens well. Mitral annular calcification is mild. There is no evide nce of mitral valve prolapse. There is no mitral valve stenosis. Doppler and Color-flow revealed mild mitral regurgitation. TRICUSPID VALVE The tricuspid valve is normal in structure and function. Doppler and Color Flow revealed trace tricus pid regurgitation. There is mild pulmonary hypertension. The PA pressure was estimated at 36 mmHg. Th ere is no tricuspid valve stenosis. PULMONIC VALVE The pulmonic valve is not well visualized but appears to be functioning normally by Doppler interroga tion. Doppler and Color Flow revealed no pulmonic valvular regurgitation. There is no pulmonic valvul ar stenosis. GREAT VESSELS The aortic root is normal in size. The ascending aorta is not well seen. The IVC is normal in size an d collapses >50% with inspiration. PERICARDIAL EFFUSION There is no evidence of significant pericardial effusion. Critical Notification Critical Value: No <Conclusion> Abnormal septal motion consistent with pacemaker activation. The Ejection Fraction is 40%. Transmitral Doppler flow pattern is Grade I-abnormal relaxation pattern. Mild mitral regurgitation. Trace tricuspid regurgitation. The PA pressure was estimated at 36 mmHg. There is no evidence of significant pericardial effusion.
[2017-01-27 16:20] VITALS: BP 128/69
[2017-01-27] MEDS ORDERED: LISI-338 PO (16:35)
--- NOTE | 2017-01-27 16:37 | PDOC3 ---
Discharge Summary Visit Information Date of Admission: Jan 26, 2017 Date of Discharge: Jan 27, 2017 Admitting Diagnosis Comment: 1. CHest fluttering, chest discomfort with indwelling pacer and defib - 2. Smoker, COPD, off home O2 x 5 mos now (as instructed by MD) 3. Mild to mod PCM 4 Hx CAD with 2 indwelling stents Final Diagnosis Problems Medical Problems: (1) Chest pain Status: Acute (2) Fluttering sensation of heart Status: Acute Brief Hospital Course Allergies Allergies Coded Allergies Type Severity Reaction Last Updated Verified Iodinated Contrast- Oral and IV Dye Allergy Severe Anaphylaxis 01/26/17 No azithromycin Allergy Intermediate Either Zithromax OR Levaquin per Dr. Donahue 01/26/17 Yes latex Allergy Intermediate 01/26/17 Yes levofloxacin Allergy Intermediate Either Zithromax OR Levaquin per Dr. Donahue 01/26/17 Yes amoxicillin Adverse Reaction Intermediate vomit 01/26/17 No Vital Signs Vital Signs Date Time Temp Pulse Resp B/P (MAP) Pulse Ox O2 Delivery O2 Flow Rate FiO2 01/27/17 16:20 91 128/69 01/27/17 16:15 Room Air 01/27/17 14:37 93 01/27/17 10:52 98.4 19 98.4 Lab Results Laboratory Tests Test 01/26/17 10:11 01/27/17 12:35 White Blood Count 7.3 x10^3/uL (4.0-11.0) Red Blood Count 4.98 x10^6/uL (3.50-5.40) Hemoglobin 15.3 g/dL (12.0-15.5) Hematocrit 46.4 % (36.0-47.0) Mean Corpuscular Volume 93 fL (79-100) Mean Corpuscular Hemoglobin 31 pg (25-35) Mean Corpuscular Hemoglobin Concent 33 g/dL (31-37) Red Cell Distribution Width 13.2 % (11.5-14.5) Platelet Count 203 x10^3/uL (140-400) Neutrophils (%) (Auto) 65 % (31-73) Lymphocytes (%) (Auto) 23 % (24-48) Monocytes (%) (Auto) 8 % (0-9) Eosinophils (%) (Auto) 4 % (0-3) Basophils (%) (Auto) 1 % (0-3) Neutrophils # (Auto) 4.7 x10^3uL (1.8-7.7) Lymphocytes # (Auto) 1.6 x10^3/uL (1.0-4.8) Monocytes # (Auto) 0.6 x10^3/uL (0.0-1.1) Eosinophils # (Auto) 0.3 x10^3/uL (0.0-0.7) Basophils # (Auto) 0.1 x10^3/uL (0.0-0.2) Sodium Level 143 mmol/L (136-145) Potassium Level 4.0 mmol/L (3.5-5.1) Chloride Level 104 mmol/L (98-107) Carbon Dioxide Level 32 mmol/L (21-32) Anion Gap 7 (6-14) Blood Urea Nitrogen 7 mg/dL (7-20) Creatinine 0.8 mg/dL (0.6-1.0) Estimated GFR (Cockcroft-Gault) 70.1 Glucose Level 112 mg/dL (70-99) Calcium Level 8.8 mg/dL (8.5-10.1) Magnesium Level 2.1 mg/dL (1.8-2.4) Total Bilirubin 0.3 mg/dL (0.2-1.0) Direct Bilirubin 0.1 mg/dL (0.0-0.2) Aspartate Amino Transf (AST/SGOT) 19 U/L (15-37) Alanine Aminotransferase (ALT/SGPT) 20 U/L (14-59) Alkaline Phosphatase 57 U/L (46-116) Creatine Kinase 17 U/L (26-192) Creatine Kinase MB (Mass) 0.6 ng/mL (0.0-3.6) Creatine Kinase MB Relative Index % (0-4) Troponin I Quantitative < 0.017 ng/mL (0.000-0.055) < 0.017 ng/mL (0.000-0.055) YC-Wvh-D-Type Natriuretic Peptide 434 pg/mL (0-124) Total Protein 7.0 g/dL (6.4-8.2) Albumin 3.9 g/dL (3.4-5.0) Lipase 56 U/L (73-393) Laboratory Tests Test 01/27/17 12:35 Troponin I Quantitative < 0.017 ng/mL (0.000-0.055) Brief Hospital Course Ms. Castaneda is a 76 oldCAucasian female who presented with Chest fluttering, has indwelling pacer defib Cards is our group, evaluated, added lisinipril 5 qD. Pacer fcning fine, did not fire. 2 notes today/ Rx called in t her pharmacy Pt see n nd examined dw RN Sophy Discharge Information Condition at Discharge: Improved, Stable Disposition/Orders: D/C to Home Scheduled Amitriptyline Hcl (Amitriptyline Hcl), 50 MG PO QHS, (Reported) Aspirin (Aspir 81), 1 TAB PO DAILY, (Reported) Budesonide/Formoterol Fumarate (Symbicort 160-4.5 Mcg Inhaler), 2 PUFF IH BID, ( Reported) Carvedilol (Carvedilol), 1 TAB PO DAILY, (Reported) Ipratropium/Albuterol Sulfate (Duoneb 0.5-3(2.5) Mg/3 Ml), 3 ML NEB QID, ( Reported) Oxycodone/Apap 5-325 (Percocet 5-325 Mg Tablet), 1-2 TAB PO Q4-6HRS, (Reported) Simvastatin (Simvastatin), 20 MG PO DAILY, (Reported) Tiotropium [place] (Spiriva), 1 CAP IH DAILY, (Reported) Scheduled PRN Albuterol Sulfate (Proair Hfa Inhaler), 2 PUFF INH PRN Q4HRS PRN for SHORTNESS OF BREATH, (Reported) Diazepam (Valium), 5 MG PO PRN TID PRN for ANXIETY / AGITATION, (Reported) Simethicone (Gas Relief), 125 MG PO PRN AFTMEALHC PRN for GAS / BLOATING, ( Reported) Discontinued Medications Albuterol Sulfate (Ventolin Hfa Inhaler), 2 PUFF IH PRN Q4-6HRS, (Reported) Carvedilol (Carvedilol), 1 TAB PO DAILY, (Reported) [hydrocodone 5-500], (Reported) [ventoli], (Reported) [ventolin PRN], (Reported) COLETTE COLLINS MD Jan 27, 2017 16:37
== END 2017-01-27 18:24 | disposition home or self-care (01) | DRG 309 ==
LOC: ER 10:02 → 6 SOUTH 12:00
PROVIDERS: ADMIT Internal Medicine; ATTEND Internal Medicine
DX: I49.8 Other specified cardiac arrhythmias (principal); E44.0 Moderate protein-calorie malnutrition; I11.0 Hypertensive heart disease with heart failure; J44.9 Chronic obstructive pulmonary disease, unspecified; I50.22 Chronic systolic (congestive) heart failure; I25.5 Ischemic cardiomyopathy; I25.10 Atherosclerotic heart disease of native coronary artery without angina pectoris; R00.2 Palpitations; E78.5 Hyperlipidemia, unspecified; F32.9 Major depressive disorder, single episode, unspecified; G43.909 Migraine, unspecified, not intractable, without status migrainosus; K21.9 Gastro-esophageal reflux disease without esophagitis; F41.9 Anxiety disorder, unspecified; M19.90 Unspecified osteoarthritis, unspecified site; M81.0 Age-related osteoporosis without current pathological fracture; F17.210 Nicotine dependence, cigarettes, uncomplicated; Z96.649 Presence of unspecified artificial hip joint; Z95.1 Presence of aortocoronary bypass graft; Z90.710 Acquired absence of both cervix and uterus; Z88.1 Allergy status to other antibiotic agents; Z91.041 Radiographic dye allergy status; Z91.040 Latex allergy status; Z71.6 Tobacco abuse counseling; Z68.24 Body mass index [BMI] 24.0-24.9, adult; Z95.5 Presence of coronary angioplasty implant and graft; I25.2 Old myocardial infarction; Z87.01 Personal history of pneumonia (recurrent); Z82.49 Family history of ischemic heart disease and other diseases of the circulatory system; Z95.810 Presence of automatic (implantable) cardiac defibrillator; R33.9 Retention of urine, unspecified
CPT/HCPCS: 36415; 71010; 80048; 80076; 82553; 83690; 83735; 83880; 84484; 85025; 93005; 93306; 94250; 94640; 94760; 99285; J1650; J7620; J7626

== ENCOUNTER 2017-11-15 14:41 | Emergency (ER) | payer OTHER | END 2017-11-15 15:24 | disposition home or self-care (01) | LOC: ER 15:24 | DX: S51.851A Open bite of right forearm, initial encounter (principal); S61.452A Open bite of left hand, initial encounter; F41.9 Anxiety disorder, unspecified; J44.9 Chronic obstructive pulmonary disease, unspecified; F32.9 Major depressive disorder, single episode, unspecified; E78.00 Pure hypercholesterolemia, unspecified; I25.2 Old myocardial infarction; Z88.1 Allergy status to other antibiotic agents; Z91.040 Latex allergy status; Z91.041 Radiographic dye allergy status; W55.81XA Bitten by other mammals, initial encounter; Y93.89 Activity, other specified; Y99.8 Other external cause status; Y92.89 Other specified places as the place of occurrence of the external cause | CPT/HCPCS: 99283 ==

== ENCOUNTER 2018-05-06 18:32 | Emergency (ER) | payer OTHER ==
[2017-11-15 14:54] VITALS: BP 145/75
[~2018-05-06 18:32] MED LIST changes: +ASPI-482 PO; +CARV6.252 PO; +DIAZ5TAB PO; +IPRA3AMP29 NEB; +LISI-338 PO; +MUPI15CR TP; +OXYC-323 PO; +PROAIR HFA8.5 GM INH; +SIME125C75 PO
== END 2018-05-06 19:48 | disposition left against medical advice (07) ==
LOC: ER 18:32
DX: M54.5 Low back pain (principal); Z53.21 Procedure and treatment not carried out due to patient leaving prior to being seen by health care provider

== ENCOUNTER 2019-01-08 16:36 | Emergency (ER) | payer OTHER ==
[~2019-01-08] VITALS: Ht 162.6 cm; Wt 47.2 kg
[~2019-01-08 16:36] MED LIST changes: +ALBU2.5V8 INH; +CARV6.2511 PO; -CARV6.252 PO; -OXYC-323 PO; +OXYC1TAB15 PO; -PROAIR HFA8.5 GM INH; -SIME125C75 PO; +SIME125C76 PO
--- NOTE | 2019-01-08 17:20 | PHYS DOC ---
Past Medical History Past Medical History: Anxiety, COPD, Depression, High Cholesterol, Heart Disease, Hip Fracture, [place] Past Surgical History: Appendectomy, Hip Replacement, Hysterectomy, Pacemaker Additional Past Surgical Histo: defib placement Alcohol Use: Rarely Drug Use: None Adult General Chief Complaint Chief Complaint: OTHER COMPLAINTS [facility] HPI Patient is a 78 year old female who presents to the emergency department with complaints of feeling like the wires of her pacemaker coming out of the left side of her chest. Patient states she called Dr. Mcgee's office to see what she should do and the nurse told her to go to the emergency room. Patient denies any firing of her pacemaker/defibrillator. She denies any chest pain, shortness of breath, injury, cough, nausea, vomiting, diaphoresis, or neck pain. Patient states she has lost a lot of weight over recent months due to not eating as much. She denies any pain at this time. Review of Systems Review of Systems Constitutional: Denies fever or chills [] Eyes: Denies change in visual acuity, redness, or eye pain [] HENT: Denies nasal congestion or sore throat [] Respiratory: Denies cough or shortness of breath [] Cardiovascular: No additional information not addressed in HPI [] GI: Denies abdominal pain, nausea, vomiting Musculoskeletal: Denies back pain or joint pain [] Integument: Reports dry skin Neurologic: Denies headache, focal weakness or sensory changes [] Complete systems were reviewed and found to be within normal limits, except as documented in this note. Allergies Allergies Allergies Coded Allergies Type Severity Reaction Last Updated Verified Iodinated Contrast- Oral and IV Dye Allergy Severe Anaphylaxis 01/26/17 No azithromycin Allergy Intermediate Either Zithromax OR Levaquin per Dr. Donahue 01/26/17 Yes latex Allergy Intermediate 01/26/17 Yes levofloxacin Allergy Intermediate Either Zithromax OR Levaquin per Dr. Donahue 01/26/17 Yes amoxicillin Adverse Reaction Intermediate vomit 01/26/17 No Physical Exam Physical Exam Constitutional: Well developed, well nourished, no acute distress, non-toxic appearance. [] HENT: Normocephalic, atraumatic, bilateral external ears normal, oropharynx moist, no oral exudates, nose normal. [] Eyes: PERRLA, EOMI, conjunctiva normal, no discharge. [] Neck: Normal range of motion, no tenderness, supple, no stridor. [] Cardiovascular:Heart rate regular rhythm, no murmur; pacer/defib noted to left upper chest, no abnormalities [] Lungs & Thorax: Bilateral breath sounds clear to auscultation [] Skin: Warm, dry, no erythema, no rash. [] Back: No tenderness Extremities: No cyanosis, ROM intact, no edema. [] Neurologic: Alert and oriented X 3, no focal deficits noted. [] Psychologic: Affect normal, judgement normal, mood normal. [] Current Patient Data Vital Signs Vital Signs Date Time Temp Pulse Resp B/P (MAP) Pulse Ox O2 Delivery O2 Flow Rate FiO2 01/08/19 17:29 91 16 136/58 (84) 95 Nasal Cannula 2.0 01/08/19 17:00 97.5 97.5 EKG EKG 1702- SR leftward axis, no STEMI read by Dr. Lin[] Radiology/Procedures Radiology/Procedures [] Course & Med Decision Making Course & Med Decision Making Pertinent Labs and Imaging studies reviewed. (See chart for details) Dx: anxiety about health, medical screening exam Nursing staff removed dry skin from area where patient felt like the wires of her pacemaker were sticking out. There was no erythema or wound present. PT denies chest pain, palpitations, syncope, or any complaints. Pt reports resolved issue after the dry skin was removed. VSS RR NAD. Patient verbalized an understanding of home care, medications, follow-up, and return to ED instructions and was in agreement with the plan of care. [] Dragon Disclaimer Dragon Disclaimer This electronic medical record was generated, in whole or in part, using a voice recognition dictation system. Departure Departure Impression: Primary Impression: Anxiety about health Additional Impression: Encounter for medical screening examination Disposition: HOME, SELF-CARE Condition: STABLE Referrals: JADON PATEL (PCP) Patient Instructions: Medical Screening Exam Additional Instructions: Follow up with Dr. Mcgee as needed, return to the ER for worsening symptoms. Problem Qualifiers PATI LOPEZ [employer] Jan 08, 2019 17:20
[2019-01-08 17:29] VITALS: BP 136/58
--- NOTE | 2019-01-11 06:50 | EKG ---
[facility] [address] [place] [address] Test Date: 2019-01-08 Test Time: 17:02:13 Pat Name: MARIE LIU Department: Patient ID: [facility]-[id number] Room: Gender: F Process Tech: [facility] ER : 1940 Requested By: PATI LOPEZ Order Number: [id number] Reading MD: Measurements Intervals [place] Rate: 94 P: 75 [place]: 168 QRS: -19 QRSD: 86 T: 90 QT: 316 QTc: 400 Interpretive Statements SINUS RHYTHM LEFTWARD AXIS LOW LIMB LEAD VOLTAGE QRS(T) CONTOUR ABNORMALITY CONSIDER ANTEROSEPTAL MYOCARDIAL DAMAGE T ABNORMALITY IN HIGH LATERAL LEADS ABNORMAL ECG No previous ECG available for comparison
== END 2019-01-08 17:48 | disposition home or self-care (01) ==
LOC: ER 16:36
DX: F41.9 Anxiety disorder, unspecified (principal); Z00.00 Encounter for general adult medical examination without abnormal findings; R07.89 Other chest pain; E78.00 Pure hypercholesterolemia, unspecified; J44.9 Chronic obstructive pulmonary disease, unspecified; I25.2 Old myocardial infarction; Z95.810 Presence of automatic (implantable) cardiac defibrillator; Z86.79 Personal history of other diseases of the circulatory system; Z91.041 Radiographic dye allergy status; Z88.1 Allergy status to other antibiotic agents; Z91.040 Latex allergy status
CPT/HCPCS: 93005; 99283

== ENCOUNTER 2019-06-04 06:40 | Outpatient (CLI) | payer OTHER ==
[~2019-06-04] VITALS: Ht 160 cm; Wt 44.9 kg
[2019-06-04] VITALS (11 sets, daily range): BP systolic 85–112; BP diastolic 41–53
[~2019-06-04 06:40] MED LIST changes: +SIMV20TA18 PO; -SIMV20TA3 PO
[2019-06-04 08:01] LABS: CALCIUM 8.9 mg/dL (8.5-10.1); CREATININE 0.7 mg/dL (0.6-1.0); GFR 81.1; POTASSIUM 4.5 mmol/L (3.5-5.1)
[2019-06-04 08:03] LABS: HEMATOCRIT 39.5 % (36.0-47.0); HEMOGLOBIN 12.9 g/dL (12.0-15.5); RED BLOOD COUNT 4.16 x10^6/uL (3.50-5.40); RED CELL DISTRIBUTION WIDTH 13.6 % (11.5-14.5)
[2019-06-04 08:13] LABS: PROTHROMBIN TIME PATIENT 13.1 SEC (11.7-14.0)
--- NOTE | 2019-06-04 08:13 | EKG ---
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
[2019-06-04] MEDS ORDERED: BACITRACIN 50,000 UNIT in IV NORMAL SALINE 250ML 250 ML IRR ONE (08:30)
[2019-06-04] MEDS ORDERED: MIDAZOLAM HCL/PF 5 MG/5 ML VIAL. ONE (08:31)
[2019-06-04] MEDS ORDERED: fentaNYL PF VIAL 100 MCG/2 ML VIAL ONE (08:31)
[2019-06-04] MEDS ORDERED: MIDAZOLAM HCL/PF 5 MG/5 ML VIAL. IV ONE (08:45)
[2019-06-04] MEDS ORDERED: LIDOCAINE 2%/EPI 1:100,000 20 ML VIAL. IJ ONE (08:45)
[2019-06-04] MEDS ORDERED: fentaNYL PF VIAL 100 MCG/2 ML VIAL IV ONE (08:45)
[2019-06-04] MEDS ORDERED: LIDOCAINE 2%/EPI 1:100,000 20 ML VIAL. ONE (08:57)
--- NOTE | 2019-06-04 09:56 | PDOC ---
MODERATE SEDATION ASSESSMENT RISKS/ALTERNATIVES Risks/Alternatives Risks and alternatives of this type of sedation and procedure discussed with: RISK/ALTERNATIVES: Patient H & P ON CHART H & P H & P on chart and reviewed for co-morbid conditions and appropriate labs. H&P ON CHART: Yes STATUS PREG STATUS ASSESSED: N/A MEDS/ALLERGIES REVIEWED Meds/Allergies Reviewed Medications and Allergies including time and route of recently administered narcotics and sedatives. MEDS/ALLERGIES REVIEWED: Yes ASA RATING ASA RATING: II AIRWAY ASSESSMENT Airway Assessment Airway patency, oral function limitations, presence of caps, crowns, dentures, partials, and ability to extend neck assessed. AIRWAY ASSESSMENT: Yes MALLAMPATI SCORE MALLAMPATI SCORE: II PRE-SEDATION ASSESSMENT PRE-SEDATION ASSESSMENT: Yes DEMETRIA HUDDLESTON MD Jun 04, 2019 09:56
[2019-06-04] MEDS ORDERED: NO ANTICOAGULANT THERAPY. MC PRN (10:00)
--- NOTE | 2019-06-04 10:06 | CARD ---
MR#: [id number] Date of Study: 06/04/2019 Ordering Physician: DEMETRIA BELTRAN, Referring Physician: DEMETRIA BELTRAN, Tech: APPROVED REPORT EXAM Successful Medtronic automated implantable cardioverter defibrillator generator change MODERATE SEDATION TIME: 39 MINUTES FLUORO TIME: 0.0 MIN DOSE: 0.04 GYCM2 INDICATIONS Chronic systolic heart failure s/p AICD implantation presenting with batter depletion PROCEDURE After explaining the risks, benefits, and alternative options, informed consent was obtained from the patient. The patient was brought to the cardiac catheterization lab and the left chest and shoulder were prepp ed and draped in the usual fashion. 30 mL of 2% lidocaine was infiltrated into the skin and subcutaneous tissues for local anesthesia. An incision was made over the previous scar and using blunt dissection and cautery the pocket was opene d, capsule exposed and opened and the previously placed generator detached from the leads. The leads were then reattached to a new Medtronic AICD generator model [id number], serial number [id number]. This was placed in the pocket that was subsequently closed in 3 layers. Hemostasis was secured. Patient t olerated the procedure well. There were no immediate complications. CONCLUSION Successful Medtronic AICD generator change for battery depletion. Signed by : Demetria Beltran, Electronically Approved : 06/04/2019 10:06:06
--- NOTE | 2019-06-04 12:42 | NUR ---
pt discharged to home with family. Instructions reviewed with pt and family. PIV dcd and pt tolerated PO.
== END 2019-06-04 12:44 | disposition home or self-care (01) ==
LOC: CCL 06:40
PROVIDERS: ATTEND Internal Medicine Cardiovascular Disease
DX: Z45.02 Encounter for adjustment and management of automatic implantable cardiac defibrillator (principal); I11.0 Hypertensive heart disease with heart failure; I50.22 Chronic systolic (congestive) heart failure; Z79.899 Other long term (current) drug therapy; Z79.01 Long term (current) use of anticoagulants
CPT/HCPCS: 33263; 36415; 80048; 85027; 85610; 85730; 93005; 99152; 99153; C1721; J0690; J2250; J3010; J3490; J7050; J7030

== ENCOUNTER → 2019-08-09 | Outpatient (CLI) | payer MEDICARE ==
[~2019-08-09] VITALS: Ht 160 cm; Wt 45.4 kg
[2019-08-09] VITALS (7 sets, daily range): BP systolic 80–97; BP diastolic 39–57
[~2019-08-09] MED LIST changes: +BACITRACIN 50,000 UNIT in IV NORMAL SALINE 250ML 250 ML IRR ONE; +LIDOCAINE 2%/EPI 1:100,000 20 ML VIAL. IJ ONE; +LIDOCAINE 2%/EPI 1:100,000 20 ML VIAL. ONE; +MIDAZOLAM HCL/PF 2 MG/2 ML VIAL. IV ONE; +MIDAZOLAM HCL/PF 2 MG/2 ML VIAL. ONE; +SULF1TAB24 PO; +ceFAZolin SODIUM IV Push 1 GM VIAL. IVP ONE; +fentaNYL PF VIAL 100 MCG/2 ML VIAL IV ONE; +fentaNYL PF VIAL 100 MCG/2 ML VIAL ONE
[2019-08-09 11:03] LABS: HEMATOCRIT 39.1 % (36.0-47.0); HEMOGLOBIN 13.1 g/dL (12.0-15.5); RED BLOOD COUNT 4.14 x10^6/uL (3.50-5.40); RED CELL DISTRIBUTION WIDTH 13.6 % (11.5-14.5); WHITE BLOOD COUNT 8.1 x10^3/uL (4.0-11.0)
[2019-08-09 11:05] LABS: CREATININE 0.9 mg/dL (0.6-1.0); GFR 60.7; POTASSIUM 4.7 mmol/L (3.5-5.1)
[2019-08-09 11:19] LABS: PROTHROMBIN TIME PATIENT 13.6 SEC (11.7-14.0)
--- NOTE | 2019-08-10 08:09 | CARD ---
MR#: [id number] Date of Study: 08/09/2019 Ordering Physician: DEMETRIA HUDDLESTON, Referring Physician: Mindi CLINE: SONIA FRANCO RTR APPROVED REPORT EXAM Removal of Medtronic dual-chamber automated implantable cardioverter defibrillator generator MODERATE SEDATION TIME: 42 MINS FLUORO TIME: 0.1 MIN DOSE: 0.08 GYCM2 INDICATIONS Chronic systolic heart failure s/p AICD implantation and subsequent generator change presented with s kin erosion and exposure of generator PROCEDURE After explaining the risks, benefits, and alternative options, informed consent was obtained from the patient. The patient was brought to the cardiac catheterization lab and the left chest and shoulder were prepp ed and draped in the usual fashion. 20 mL of 2% lidocaine was infiltrated into the skin and subcutis tissues for local anesthesia. An inc ision was made over the previous scar and using blunt dissection and cautery the pocket was opened, c apsule exposed and opened and the generator removed from the pocket. The eroded skin was excised to t he level of healthy tissue. The leads were detached from the generator, capped and repositioned in th e pocket. The pocket was thoroughly flushed with bacitracin and closed in 3 layers. Hemostasis was se cured. Patient tolerated the procedure well. There were no immediate complications. CONCLUSION Successful removal of Medtronic AICD generator secondary to skin erosion and exposure of the generato r. RECOMMENDATIONS Prophylactic antibiotics per ID recommendations for 3-4 weeks. If patient remains infection free, we will consider subpectoral implantation of AICD. Signed by : Demetria Huddleston, Electronically Approved : 08/09/2019 16:03:23
== END ==
LOC: CCL 10:17
PROVIDERS: ATTEND Internal Medicine Cardiovascular Disease
DX: I50.22 Chronic systolic (congestive) heart failure (principal); Z45.02 Encounter for adjustment and management of automatic implantable cardiac defibrillator
CPT/HCPCS: 33241; 36415; 80048; 85027; 85610; 99152; 99153; J0690; J2250; J3010; J3490; J7050; J7030

== ENCOUNTER → 2019-12-09 | Outpatient (CLI) | payer MEDICARE ==
[2019-08-09 15:54] VITALS: BP 95/44
[~2019-12-09] MED LIST changes: -BACITRACIN 50,000 UNIT in IV NORMAL SALINE 250ML 250 ML IRR ONE; -LIDOCAINE 2%/EPI 1:100,000 20 ML VIAL. IJ ONE; -LIDOCAINE 2%/EPI 1:100,000 20 ML VIAL. ONE; -MIDAZOLAM HCL/PF 2 MG/2 ML VIAL. IV ONE; -MIDAZOLAM HCL/PF 2 MG/2 ML VIAL. ONE; -SIME125C76 PO; +SIME125C85 PO; -ceFAZolin SODIUM IV Push 1 GM VIAL. IVP ONE; -fentaNYL PF VIAL 100 MCG/2 ML VIAL IV ONE; -fentaNYL PF VIAL 100 MCG/2 ML VIAL ONE
--- NOTE | 2019-12-09 14:35 | CARD ---
MR#: [id number] Date of Study: 12/09/2019 Ordering Physician: TUSHAR SHERWOOD, Referring Physician: TUSHAR SHERWOOD, Tech: Yisel Luu [facility] APPROVED REPORT EXAM: Two-dimensional and M-mode echocardiogram with Doppler and color Doppler. Other Information Quality : Good INDICATION COPD Ischemic Cardiomyopathy 2D DIMENSIONS Left Atrium(2D)2.0 (1.6-4.0cm)IVSd0.6 (0.7-1.1cm) Aortic Root(2D)2.8 (2.0-3.7cm)LVDd4.5 (3.9-5.9cm) LVOT Diameter2.0 (1.8-2.4cm)PWd0.6 (0.7-1.1cm) LVDs3.2 (2.5-4.0cm)FS (%) 28.3 % SV50.3 ml Aortic Valve AoV Peak Erik.86.9cm/sAoV VTI14.8cm AO Peak GR.3.0mmHgLVOT Peak Erik.97.8cm/s AO Mean GR.2mmHgAVA (VMAX)3.42cm2 ALLA (VTI)2.90cm2 Mitral Valve MV E Rguxskpi80.5cm/sMV DECEL MHIL434go MV A Ktzxfvrf29.1cm/sE/A Ratio0.7 Tricuspid Valve TR P. Akedjdvp613am/sRAP LOCBWDQL2sjSm TR Peak Gr.47xjFpKVYJ36wnUl Pulmonary Vein S1 Zfofgapt51.2cm/sD2 Bhtbdoid88.1cm/s LEFT VENTRICLE The Left Ventricle is borderline dilated. There is normal left ventricular wall thickness. Left ventr icle systolic function is moderate to severely decreased. The Ejection Fraction is 25-30%. There is m oderate to severe global hypokinesis of the left ventricle. Transmitral Doppler flow pattern is Grade I-abnormal relaxation pattern. RIGHT VENTRICLE The right ventricle is normal size. The right ventricular systolic function is normal. There is a pac emaker lead in the right ventricle. ATRIA The left atrium size is normal. The right atrium size is normal. A pacemaker is seen in the right atr ium consistent with history. The interatrial septum is intact with no evidence for an atrial septal d efect or patent foramen ovale as noted on 2-D or Doppler imaging. AORTIC VALVE The aortic valve is calcified but opens well. Doppler and Color Flow revealed no significant aortic r egurgitation. There is no significant aortic valvular stenosis. MITRAL VALVE The mitral valve is calcified but opens well. Mitral annular calcification is mild. There is no evide nce of mitral valve prolapse. There is no mitral valve stenosis. Doppler and Color-flow revealed mild mitral regurgitation. TRICUSPID VALVE The tricuspid valve is normal in structure and function. Doppler and Color Flow revealed mild tricusp id regurgitation. The PA pressure was estimated at 30 mmHg. There is no tricuspid valve stenosis. PULMONIC VALVE The pulmonic valve is not well visualized. Doppler and Color Flow revealed no pulmonic valvular regur gitation. There is no pulmonic valvular stenosis. GREAT VESSELS The aortic root is normal in size. The ascending aorta is not well seen. The IVC is normal in size an d collapses >50% with inspiration. PERICARDIAL EFFUSION There is no evidence of significant pericardial effusion. Critical Notification Critical Value: No <Conclusion> The Left Ventricle is borderline dilated. Left ventricle systolic function is moderate to severely decreased. The Ejection Fraction is 25-30%. There is moderate to severe global hypokinesis of the left ventricle. Doppler and Color Flow revealed no significant aortic regurgitation. There is no significant aortic valvular stenosis. Doppler and Color-flow revealed mild mitral regurgitation. Doppler and Color Flow revealed mild tricuspid regurgitation. The PA pressure was estimated at 30 mmHg. Signed by : Tushar Sherwood MD Electronically Approved : 12/09/2019 14:34:53
== END | disposition home or self-care (01) ==
LOC: ECHO 12:59
PROVIDERS: ATTEND Internal Medicine Cardiovascular Disease
DX: I08.1 Rheumatic disorders of both mitral and tricuspid valves (principal); I25.5 Ischemic cardiomyopathy; Z95.0 Presence of cardiac pacemaker
CPT/HCPCS: 93306

== ENCOUNTER → 2020-03-15 | Outpatient (CLI) | payer MEDICARE ==
[2019-08-09 15:54] VITALS: BP 95/44
--- NOTE | 2020-03-16 07:37 | CARD ---
MR#: [id number] Date of Study: 03/15/2020 Ordering Physician: TUSHAR HANDY, Referring Physician: TUSHAR HANDY, Tech: Yisel Luu [facility] APPROVED REPORT EXAM: Two-dimensional and M-mode echocardiogram with Doppler and color Doppler. Other Information Quality : Technically Limited Technically limited study due to body habitus and smoking/02 dependent INDICATION Ischemic Cardiomyopathy, ICD removed due to infection 2D DIMENSIONS RVDd2.7 (2.9-3.5cm)Left Atrium(2D)2.2 (1.6-4.0cm) IVSd0.7 (0.7-1.1cm)Aortic Root(2D)3.4 (2.0-3.7cm) LVDd4.1 (3.9-5.9cm)LVOT Diameter1.9 (1.8-2.4cm) PWd0.8 (0.7-1.1cm)LVDs2.7 (2.5-4.0cm) FS (%) 17.0 %SV47.9 ml LVEF(%)35.0 (>50%) Aortic Valve AoV Peak Erik.89.2cm/sAoV VTI13.5cm AO Peak GR.3.2mmHgLVOT Peak Erik.90.6cm/s AO Mean GR.2mmHgAVA (VMAX)2.86cm2 ALLA (VTI)2.80cm2 Mitral Valve MV E Oipdryso98.8cm/sMV DECEL [id number] MV A Rpldqnfr00.8cm/sE/A Ratio0.8 Tricuspid Valve TR P. Ruiwnmgj349im/sRAP AXGXTOQT0cvAi TR Peak Gr.82cnGtDFOJ85ssDi Pulmonary Vein S1 Onygpfex44.0cm/sD2 Wjvgpzhh56.0cm/s LEFT VENTRICLE The left ventricle is normal size. There is normal left ventricular wall thickness. Left ventricle sy stolic function is moderately impaired. The Ejection Fraction is 35-40%. Septal motion consistent wit h conduction abnormality. The septum and anterior smith are moderately hypokinetic. Transmitral Doppl er flow pattern is Grade I-abnormal relaxation pattern. RIGHT VENTRICLE The right ventricle is normal size. The right ventricular systolic function is normal. There is a pac emaker lead in the right ventricle. ATRIA The left atrium size is normal. The right atrium size is normal. A pacemaker lead is seen in the righ t atrium consistent with history. The interatrial septum is intact with no evidence for an atrial sep ronald defect or patent foramen ovale as noted on 2-D or Doppler imaging. AORTIC VALVE The aortic valve is calcified with restricted leaflet motion. Doppler and Color Flow revealed no sign ificant aortic regurgitation. There is no significant aortic valvular stenosis. MITRAL VALVE The mitral valve is calcified but opens well. Mitral annular calcification is mild. There is no evide nce of mitral valve prolapse. There is no mitral valve stenosis. Doppler and Color-flow revealed trac e mitral regurgitation. TRICUSPID VALVE The tricuspid valve is normal in structure and function. Doppler and Color Flow revealed trace to mil d tricuspid regurgitation. There is mild pulmonary hypertension. The PA pressure was estimated at 38 mmHg. There is no tricuspid valve stenosis. PULMONIC VALVE The pulmonic valve is not well visualized. Doppler and Color Flow revealed no pulmonic valvular regur gitation. There is no pulmonic valvular stenosis. GREAT VESSELS The aortic root is normal in size. The ascending aorta is not well seen. The IVC is normal in size an d collapses >50% with inspiration. PERICARDIAL EFFUSION There is no evidence of significant pericardial effusion. Critical Notification Critical Value: No <Conclusion> Left ventricle systolic function is moderately impaired. The Ejection Fraction is 35-40%. Septal motion consistent with conduction abnormality. The septum and anterior smith are moderately hy pokinetic. There is a pacemaker lead in the right ventricle. Signed by : José Miguel George, Electronically Approved : 03/16/2020 07:37:04
== END | disposition home or self-care (01) ==
LOC: ECHO 13:06
PROVIDERS: ATTEND Internal Medicine Cardiovascular Disease
DX: I08.3 Combined rheumatic disorders of mitral, aortic and tricuspid valves (principal); I25.5 Ischemic cardiomyopathy; Z95.0 Presence of cardiac pacemaker
CPT/HCPCS: 93306